=== PATIENT | female | born 1985 | race Caucasian/White ===

== ENCOUNTER 2019-01-01 14:38 | Emergency (ER) | payer SELFPAY ==
--- NOTE | 2019-01-01 15:30 | EDM.PDOC ---
ED HPI GENERAL MEDICAL PROBLEM - General Chief Complaint: General Stated Complaint: RIGHT ABSCESS Time Seen by Provider: 01/01/19 15:30 Source of Information: Reports: Patient History Limitations: Reports: No Limitations - History of Present Illness INITIAL COMMENTS - FREE TEXT/NARRATIVE: History of present illness: []Patient has had months of dental pain but worsened with facial swelling or stenting in the past few days. no drainage from her gums, or fevers. She states she is not . Review of systems: As per history of present illness and below otherwise all systems reviewed and negative. Past medical history: As per history of present illness and as reviewed below otherwise noncontributory. Surgical history: As per history of present illness and as reviewed below otherwise noncontributory. Social history: No reported history of drug or alcohol abuse. Family history: As per history of present illness and as reviewed below otherwise noncontributory. Physical exam: General: Well developed, well nourished in NAD HEENT: Atraumatic, normocephalic, pupils reactive, negative for conjunctival pallor or scleral icterus, mucous membranes moist, throat clear, neck supple, nontender, trachea midline. Her dentition there is no swelling noted of her face Lungs: Clear to auscultation, breath sounds equal bilaterally, chest nontender. Heart: S1S2, regular, negative for clicks, rubs, or JVD. Abdomen: NABS, Soft, nondistended, nontender. Negative for masses or hepatosplenomegaly. Negative for costovertebral tenderness. Pelvis: Stable nontender. Genitourinary: Deferred. Rectal: Deferred. Extremities: Atraumatic, negative for cords or calf pain. Neurovascular unremarkable. Neuro: Awake, alert, oriented. Cranial nerves II through XII unremarkable. Cerebellum unremarkable. Motor and sensory unremarkable throughout. Exam nonfocal. Skin:warm and dry Diagnostics: None Therapeutics: none ED Course: stable Impression: dental abscess Prescriptions: clindamycin Dental balls Plan: Take meds as directed, follow up with your primary care physician, return to ER if symptoms worsen or change. Definitive disposition and diagnosis as appropriate pending reevaluation and review of above. 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 Musculoskeletal History: Reports: None Neurological History: Reports: None Psychiatric History: Reports: None Endocrine/Metabolic History: Reports: None Hematologic History: Reports: None Immunologic History: Reports: None Oncologic (Cancer) History: Reports: None Dermatologic History: Reports: None - Infectious Disease History Infectious Disease History: Reports: None - Past Surgical History Head Surgeries/Procedures: Reports: None GI Surgical History: Reports: Cholecystectomy Social & Family History - Tobacco Use Smoking Status *Q: Current Every Day Smoker Years of Tobacco use: 15 Packs/Tins Daily: 1 - Caffeine Use Caffeine Use: Reports: None - Recreational Drug Use Recreational Drug Use: No ED ROS GENERAL - Review of Systems Review Of Systems: See Below ED EXAM, GENERAL - Physical Exam Exam: See Below Course - Vital Signs Last Recorded V/S: Last Vital Signs Temp 98.7 F 01/01/19 15:10 Pulse 94 01/01/19 15:10 Resp 20 01/01/19 15:10 BP 94/54 L 01/01/19 15:10 Pulse Ox 98 01/01/19 15:10 - Orders/Labs/Meds Meds: Medications Discontinued Medications Generic Name Dose Route Start Last Admin Trade Name Freq PRN Reason Stop Dose Admin Benzocaine 2 each 01/01/19 15:37 Hurricaine One 20% MUCMEM 01/01/19 15:38 ONETIME ONE Lidocaine HCl 15 ml 01/01/19 15:37 Xylocaine 2% Viscous PO 01/01/19 15:38 ONETIME ONE Departure - Departure Time of Disposition: 15:40 Disposition: Home, Self-Care 01 Condition: Good Clinical Impression: Dental abscess - Discharge Information *PRESCRIPTION DRUG MONITORING PROGRAM REVIEWED*: Not Applicable *COPY OF PRESCRIPTION DRUG MONITORING REPORT IN PATIENT DENAE: Not Applicable Prescriptions: Clindamycin HCl 300 mg PO TID #30 capsule Referrals: Bryan Cardenas MD [Primary Care Provider] - Forms: ED Department Discharge Additional Instructions: The following information is given to patients seen in the emergency department who are being discharged to home. This information is to outline your options for follow-up care. We provide all patients seen in our emergency department with a follow-up referral. The need for follow-up, as well as the timing and circumstances, are variable depending upon the specifics of your emergency department visit. If you don't have a primary care physician on staff, we will provide you with a referral. We always advise you to contact your personal physician following an emergency department visit to inform them of the circumstance of the visit and for follow-up with them and/or the need for any referrals to a consulting specialist. The emergency department will also refer you to a specialist when appropriate. This referral assures that you have the opportunity for follow-up care with a specialist. All of these measure are taken in an effort to provide you with optimal care, which includes your follow-up. Under all circumstances we always encourage you to contact your private physician who remains a resource for coordinating your care. When calling for follow-up care, please make the office aware that this follow-up is from your recent emergency room visit. If for any reason you are refused follow-up, please contact the [facility] Emergency Department at and asked to speak to the emergency department charge nurse. Take meds as directed, follow up with your primary care physician, return to ER if symptoms worsen or change. [facility] [address] [place] [id number]
[2019-01-01] MEDS ORDERED: Lidocaine 2% Viscous Solution 15 ML Cup PO ONE (15:37)
[2019-01-01] MEDS ORDERED: Benzocaine 20% Topical Spray UD MUCMEM ONE (15:37)
== END 2019-01-01 16:10 | disposition home or self-care (01) ==
LOC: MW.ED 14:38
DX: K04.7 Periapical abscess without sinus (principal); F17.210 Nicotine dependence, cigarettes, uncomplicated; Z91.030 Bee allergy status
CPT/HCPCS: 99282; A9270

== ENCOUNTER 2019-06-12 15:20 | Emergency (ER) | payer SELFPAY ==
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
--- NOTE | 2019-06-12 15:55 | CR ---
Right foot: 2 views of the right foot were obtained. Frontal view is slightly obliqued which causes overlap of the metatarsal bases and poor evaluation of this area. Within this limitation, no discrete fracture or other abnormality is appreciated. Impression: 1. Somewhat limited study as noted above. 2. Within above noted limitation, no abnormality is otherwise identified. Diagnostic code #2 This report was dictated in Mountain Standard Time
== END 2019-06-12 16:13 ==
LOC: MW.ED 15:20
DX: S99.921A Unspecified injury of right foot, initial encounter (principal); Z91.030 Bee allergy status; Y04.0XXA Assault by unarmed brawl or fight, initial encounter
CPT/HCPCS: 73620-26-RT; 73620-RT; 99283; 99283-25

== ENCOUNTER 2019-12-04 10:20 | Emergency (ER) | payer SELFPAY ==
[2019-12-04] MEDS ORDERED: Lidocaine 2% Viscous Solution 15 ML Cup PO ONE (10:22)
[2019-12-04] MEDS ORDERED: Benzocaine 20% Topical Spray UD MUCMEM ONE (10:22)
--- NOTE | 2019-12-04 10:23 | EDM.PDOC ---
ED HPI GENERAL MEDICAL PROBLEM - General Chief Complaint: ENT Problem Stated Complaint: TOOTH PAIN LT SIDE SWOLLEN Time Seen by Provider: 12/04/19 10:22 Source of Information: Reports: Patient History Limitations: Reports: No Limitations - History of Present Illness INITIAL COMMENTS - FREE TEXT/NARRATIVE: HISTORY AND PHYSICAL: History of present illness: Patient is a 34-year-old female who presents to the emergency room with complaints of left lower dental pain and swelling. She states over the past 2 to 3 days she has had increased pain after "breaking off a piece of my tooth". She states she has multiple "bad teeth" and has been needing to follow-up with a dentist. She was chewing on some gum when a small piece of her tooth had broken off. Attempted to get into a dentist, not able to until next week. Patient denies any fever, chills, headache, change in vision, syncope or near syncope. Denies any chest pain, back pain, shortness of breath or cough. Denies any abdominal pain, nausea, vomiting, diarrhea, constipation or dysuria. Has not noted any blood in urine or stool. Patient has been eating and drinking appropriately. Review of systems: As per history of present illness and below otherwise all systems reviewed and negative. Past medical history: As per history of present illness and as reviewed below otherwise noncontributory. Surgical history: As per history of present illness and as reviewed below otherwise noncontributory. Social history: See social history for further information Family history: As per history of present illness and as reviewed below otherwise noncontributory. Physical exam: General: Well developed and well nourished 34-year-old female. Alert and orientated x 3. Nontoxic in appearance and in no acute distress. Vital signs are stable and have been reviewed by me. Nursing notes were reviewed. HEENT: Atraumatic, normocephalic, pupils equal and reactive bilaterally, negative for conjunctival pallor or scleral icterus, mucous membranes moist, TMs normal bilaterally, throat clear, multiple dental caries, she does have a part of the #19 tooth chipped off without any nerve root exposure. It is red and slightly tender without any fluctuance. Neck supple, nontender, trachea midline. No drooling or trismus noted. No meningeal signs. No hot potato voice noted. Lungs: Clear to auscultation, breath sounds equal bilaterally. Normal work of breathing, no accessory muscles used. Heart: S1S2, regular rate and rhythm without overt murmur Skin: Intact, warm, dry. No lesions or rashes noted. Hematologic: No petechiae or purpra. Mucosa appropriate color and normal nail bed color and refill. Extremities: Atraumatic, moves all extremities per self without difficulty or deficits. Neurovascular unremarkable. Neuro: Awake, alert, oriented. Cranial nerves II through XII unremarkable. Cerebellum unremarkable. Motor and sensory unremarkable throughout. Exam nonfocal. Notes: Explained the importance of following up with a dentist for definitive care. Will place on antibiotic due to possible early abscess. We discussed signs and symptoms that would prompt them to return to the Emergency Department. Medicatio n, follow up and supportive care measures were reviewed and discussed. Voices understanding and is agreeable to plan of care. Denies any further questions or concerns at this time. Diagnostics: None Therapeutics: Dental balls Prescription: Pen-Vee K, diclofenac Impression: Dental caries Plan: 1. Please take the antibiotic as prescribed. 2. Tylenol and/or ibuprofen as needed for pain management. "Tooth Balls" have been given to you; apply along the gumline every 2-3 hours as needed. Do not swallow these; external use only. 3. Follow-up with a dentist for definitive care. Return to the ED as needed and as discussed. Definitive disposition and diagnosis as appropriate pending reevaluation and review of above. 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 Musculoskeletal History: Reports: None Neurological History: Reports: None Psychiatric History: Reports: None Endocrine/Metabolic History: Reports: None Hematologic History: Reports: None Immunologic History: Reports: None Oncologic (Cancer) History: Reports: None Dermatologic History: Reports: None - Infectious Disease History Infectious Disease History: Reports: None - Past Surgical History Head Surgeries/Procedures: Reports: None GI Surgical History: Reports: Cholecystectomy Social & Family History - Family History Family Medical History: Noncontributory - Caffeine Use Caffeine Use: Reports: None ED ROS ENT - Review of Systems Review Of Systems: Comprehensive ROS is negative, except as noted in HPI. ED EXAM, ENT - Physical Exam Exam: See Below (See dictation) Course - Orders/Labs/Meds Meds: Medications Discontinued Medications Generic Name Dose Route Start Last Admin Trade Name Freq PRN Reason Stop Dose Admin Hydrocodone Bitart/Acetaminophen 1 tab 12/04/19 11:04 [place] 325-5 Mg PO 12/04/19 11:05 ONETIME ONE Benzocaine 2 each 12/04/19 10:22 Hurricaine One 20% MUCMEM 12/04/19 10:23 ONETIME ONE Lidocaine HCl 15 ml 12/04/19 10:22 Xylocaine 2% Viscous PO 12/04/19 10:23 ONETIME ONE Departure - Departure Time of Disposition: 11:16 Disposition: Home, Self-Care 01 Clinical Impression: Dental caries - Discharge Information Prescriptions: Penicillin V Potassium 500 mg PO TID 10 Days #30 tablet Diclofenac Sodium [Voltaren] 75 mg PO BIDMEALS PRN #30 tab.cr PRN Reason: Pain Instructions: Preventive Dental Care, Adult Referrals: PCP,None [Primary Care Provider] - Forms: ED Department Discharge Additional Instructions: The following information is given to patients seen in the emergency department who are being discharged to home. This information is to outline your options for follow-up care. We provide all patients seen in our emergency department with a follow-up referral. The need for follow-up, as well as the timing and circumstances, are variable depending upon the specifics of your emergency department visit. If you don't have a primary care physician on staff, we will provide you with a referral. We always advise you to contact your personal physician following an emergency department visit to inform them of the circumstance of the visit and for follow-up with them and/or the need for any referrals to a consulting specialist. The emergency department will also refer you to a specialist when appropriate. This referral assures that you have the opportunity for follow-up care with a specialist. All of these measure are taken in an effort to provide you with optimal care, which includes your follow-up. Under all circumstances we always encourage you to contact your private physician who remains a resource for coordinating your care. When calling for follow-up care, please make the office aware that this follow-up is from your recent emergency room visit. If for any reason you are refused follow-up, please contact the [facility] Emergency Department at and asked to speak to the emergency department charge nurse. [facility] Primary Care [address] [place] [id number] [facility] [address] [place] [phone] Thank you for choosing the [facility] emergency department in [place] for your medical needs today. It was a pleasure caring for you. Today you were seen in the emergency department for dental pain. 1. Please take the antibiotic as prescribed. 2. Tylenol and prescribed Diclofenac as needed for pain management. "Tooth Balls" have been given to you; apply along the gumline every 2-3 hours as needed. Do not swallow these; external use only. 3. Follow-up with a dentist for definitive care. Return to the ED as needed and as discussed.
[2019-12-04] MEDS ORDERED: Acetaminophen/HYDROcodone 325-5 MG Tab PO ONE (11:04)
== END 2019-12-04 11:28 | disposition home or self-care (01) ==
LOC: MW.ED 10:20
DX: K02.9 Dental caries, unspecified (principal); Z91.030 Bee allergy status
CPT/HCPCS: 99282; A9270

== ENCOUNTER 2020-03-13 15:59 | Emergency (ER) | payer SELFPAY ==
[2020-03-13] MEDS ORDERED: Lactated Ringers 1,000 ML IV ONE (16:18)
[2020-03-13] MEDS ORDERED: Sodium Chloride 0.9% 2.5 ML Syringe FLUSH PRN (16:18)
[2020-03-13] MEDS ORDERED: Sodium Chloride 0.9% 10 ML Syringe FLUSH PRN (16:18)
[2020-03-13] MEDS ORDERED: LORazepam 2 MG/ML SDV IVPUSH ONE ×2 (16:19→17:12)
[2020-03-13] MEDS ORDERED: Acetaminophen 500 MG Tab PO ONE (16:46)
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
[2020-03-13 17:08] LABS: BLOOD UREA NITROGEN,BUN 18 mg/dL (7.0-18.0); CHLORIDE,CL 103 mmol/L (98-107); GLUCOSE RANDOM 91 mg/dL (74-106); POTASSIUM,K 3.5 mmol/L (3.5-5.1); SODIUM,NA 138 mmol/L (136-145)
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
[2020-03-13] MEDS ORDERED: Iopamidol 755 MG/ML 500 ML Multipack Bottle IVPUSH STA (18:26)
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
== END 2020-03-13 19:13 ==
LOC: MW.ED 15:59
DX: T71.9XXA Asphyxiation due to unspecified cause, initial encounter (principal); M25.511 Pain in right shoulder; F15.90 Other stimulant use, unspecified, uncomplicated; M54.2 Cervicalgia; F17.210 Nicotine dependence, cigarettes, uncomplicated; Z91.030 Bee allergy status; Y04.0XXA Assault by unarmed brawl or fight, initial encounter
CPT/HCPCS: 36415; 70498; 73030; 80053; 80307; 83605; 84484; 84703; 85025; 93005; 96374; 96376; 99285; A9270; J2060; J7120; Q9967; 93010; 99284

== ENCOUNTER 2020-10-23 03:50 | Emergency (ER) | payer MEDICAID ==
[2020-10-23] MEDS ORDERED: Diphtheria,Pertussis(Acell),Tetanus Vaccine 0.5 ML Syringe IM ONE ×2 (03:59→04:04)
--- NOTE | 2020-10-23 04:19 | EDM.PDOC ---
ED HPI GENERAL MEDICAL PROBLEM - General Chief Complaint: Laceration Stated Complaint: FISH HOOK IN RIGHT HAND RING FINGER Time Seen by Provider: 10/23/20 03:51 Source of Information: Reports: Patient History Limitations: Reports: No Limitations - History of Present Illness INITIAL COMMENTS - FREE TEXT/NARRATIVE: 35-year-old female presents with fishhook embedded in the right ring finger today. She was picking up something off the floor at home and was injured with fishhook. Tetanus status not up-to-date. Pain is localized to her right ring finger, constant, nonradiating exacerbated with range of motion, no alleviating factors. ROS: A 10-point review of systems, other than pertinent positives and negatives as stated per HPI, is otherwise negative Past medical history: No additional pertinent history Past Surgical history: No additional pertinent history Social history: No additional pertinent history Family history: No additional pertinent history PHYSICAL EXAM General: AOx4, GCS = 15, mild distress HEENT: dry mucous membrane Neck: supple, no meningismus, no Kernig or Brudzinski Cardiac: S1S2 RRR Respiratory: CTAB, no crackles or rales, no wheezing Abdomen: Soft, nontender, no rebound or guarding, nondistended, no pulsatile mass. Back: nontender Musculoskeletal: NVI distally, fishhook to right ring finger distal phalanx on the finger pad. No deformity Neuro: No focal deficits, CN 2 - 12 WNL. 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 Musculoskeletal History: Reports: None Neurological History: Reports: None Psychiatric History: Reports: None Endocrine/Metabolic History: Reports: None Hematologic History: Reports: None Immunologic History: Reports: None Oncologic (Cancer) History: Reports: None Dermatologic History: Reports: None - Infectious Disease History Infectious Disease History: Reports: None - Past Surgical History Head Surgeries/Procedures: Reports: None HEENT Surgical History: Reports: None Cardiovascular Surgical History: Reports: None Respiratory Surgical History: Reports: None GI Surgical History: Reports: Cholecystectomy Female Surgical History: Reports: Hysterectomy Endocrine Surgical History: Reports: None Neurological Surgical History: Reports: None Musculoskeletal Surgical History: Reports: None Oncologic Surgical History: Reports: None Dermatological Surgical History: Reports: None Social & Family History - Family History Family Medical History: No Pertinent Family History - Caffeine Use Caffeine Use: Reports: Coffee, Energy Drinks ED ROS GENERAL - Review of Systems Review Of Systems: See Below (see dictation) ED EXAM, SKIN/RASH Exam: See Below (see dictation) ED SKIN PROCEDURES - Foreign Body Removal Indication:: Bear in right ring finger Consent Obtained:: Patient Performing Doctor:: Zeke Sher Anesthesia Type: Other (see below) Anesthesia Other:: digital block with lidocaine 1% Findings:: Bear successfully removed with string being approach. Patient tolerated well. Complications:: No Course - Orders/Labs/Meds Orders: Active Orders 24 hr Category Date Time Status Vaccines to be Administered [RC] PER UNIT ROUTINE Care 10/23/20 04:05 Active Meds: Medications Discontinued Medications Generic Name Dose Route Start Last Admin Trade Name Freq PRN Reason Stop Dose Admin Diphtheria/Tetanus/Acell Pertussis 0.5 ml 10/23/20 03:59 10/23/20 04:04 Diphtheria,Pertussis(Acell),Tetanus Vaccine 0.5 Ml Syringe IM 10/23/20 04:00 Not Given .ONCE ONE Diphtheria/Tetanus/Acell Pertussis 0.5 ml 10/23/20 04:04 10/23/20 04:08 Diphtheria,Pertussis(Acell),Tetanus Vaccine 0.5 Ml Syringe IM 10/23/20 04:05 0.5 ml .ONCE ONE Administration Lidocaine HCl 5 ml 10/23/20 04:07 10/23/20 04:10 Lidocaine 1% 5 Ml Sdv INJECT 10/23/20 04:08 5 ml ONETIME ONE Administration - Re-Assessments/Exams Free Text/Narrative Re-Assessment/Exam: 10/23/20 04:19 Wound was aggressively irrigated with saline after fishhook removal. Tetanus updated in the ED. Departure - Departure Time of Disposition: 04:14 Disposition: Home, Self-Care 01 Condition: Good Clinical Impression: Fish hook injury of finger - Discharge Information *PRESCRIPTION DRUG MONITORING PROGRAM REVIEWED*: Not Applicable *COPY OF PRESCRIPTION DRUG MONITORING REPORT IN PATIENT DENAE: Not Applicable Prescriptions: cephALEXin [Keflex] 500 mg PO Q8H #15 cap Instructions: Puncture Wound, [id number] Referrals: Bryan Cardenas MD [Primary Care Provider] - 3 Days Additional Instructions: The need for follow-up, as well as the timing and circumstances, are variable depending upon the specifics of your emergency department visit. If you don't have a primary care physician on staff, we will provide you with a referral. We always advise you to contact your personal physician following an emergency department visit to inform them of the circumstance of the visit and for follow-up with them and/or the need for any referrals to a consulting specialist. The emergency department will also refer you to a specialist when appropriate. This referral assures that you have the opportunity for follow-up care with a specialist. All of these measure are taken in an effort to provide you with optimal care, which includes your follow-up. Under all circumstances we always encourage you to contact your private physician who remains a resource for coordinating your care. When calling for follow-up care, please make the office aware that this follow-up is from your recent emergency room visit. If for any reason you are refused follow-up, please contact the [facility] Emergency Department at and asked to speak to the emergency department charge nurse. If you do not have a primary care doctor, please follow up with the clinics below within 3-5 days. [facility] [address] [place] [id number] [address] - My Orders Last 24 Hours: My Active Orders 10/23/20 04:05 Vaccines to be Administered [RC] PER UNIT ROUTINE - Assessment/Plan Last 24 Hours: My Active Orders 10/23/20 04:05 Vaccines to be Administered [RC] PER UNIT ROUTINE
== END 2020-10-23 04:20 | disposition home or self-care (01) ==
LOC: MW.ED 03:50
DX: S60.454A Superficial foreign body of right ring finger, initial encounter (principal); Z91.030 Bee allergy status; Z23 Encounter for immunization; W45.8XXA Other foreign body or object entering through skin, initial encounter
CPT/HCPCS: 64450; 90471; 90715; 99283-25

== ENCOUNTER 2021-02-02 06:35 | Emergency (ER) | payer MEDICAID ==
--- NOTE | 2021-02-02 07:00 | EDM.PDOC ---
ED HPI GENERAL MEDICAL PROBLEM - General Chief Complaint: Lower Extremity Injury/Pain Stated Complaint: LEFT KNEE PAIN Time Seen by Provider: 02/02/21 06:53 - History of Present Illness INITIAL COMMENTS - FREE TEXT/NARRATIVE: History of present illness: In the evening last night the patient stepped out of bathtub and immediately felt pain in the distal vastus medialis of her quadriceps patella and medial knee. She is able to bear weight but it is quite painful as is range of motion. There is severe sharp pain right in that area with no radiation and no other symptoms. Patient enjoys good health and was in her usual state of health before that happened. She does not take any medicine. She does however smoke tobacco. Review of systems: As per history of present illness and below otherwise all systems reviewed and negative. Past medical history: As per history of present illness and as reviewed below otherwise noncontributory. Surgical history: As per history of present illness and as reviewed below otherwise noncontributory. Social history: No reported history of drug or alcohol abuse. Family history: As per history of present illness and as reviewed below otherwise noncontributory. Physical exam: Constitutional - well developed, well-nourished and in no acute distress HEENT - normocephalic, no evidence of trauma - external nose and mouth normal - no mass in neck and no JVD - mucosae moist EYES - full EOM, PERRL, no icterus - no evidence of inflammation, injection, or drainage Respiratory - no respiratory distress, equal bilateral expansion Musculoskeletal tender distal most vastus medialis of the quadriceps, upper medial patella, medial knee joint itself. Joint range of motion is essentially normal. Otherwise no gross deformity of long bones or joints - no tenderness, swelling or edema Neurologic - Alert and oriented times four - CN II-XII grossly intact - motor sensory and coordination symmetrically normal Psychiatric - appropriate mood and affect with normal thought content Hematologic - No petechiae or purpura - mucosa appropriate color and sclera not pale - normal nail bed color and refill Integument - no rash or evidence of trauma - normal turgor Diagnostics: [] Therapeutics: [] Impression: [] Plan: [] Definitive disposition and diagnosis as appropriate pending reevaluation and review of above. 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 Musculoskeletal History: Reports: None Neurological History: Reports: None Psychiatric History: Reports: None Endocrine/Metabolic History: Reports: None Hematologic History: Reports: None Immunologic History: Reports: None Oncologic (Cancer) History: Reports: None Dermatologic History: Reports: None - Infectious Disease History Infectious Disease History: Reports: None - Past Surgical History Head Surgeries/Procedures: Reports: None HEENT Surgical History: Reports: None Cardiovascular Surgical History: Reports: None Respiratory Surgical History: Reports: None GI Surgical History: Reports: Cholecystectomy Female Surgical History: Reports: Hysterectomy Endocrine Surgical History: Reports: None Neurological Surgical History: Reports: None Musculoskeletal Surgical History: Reports: None Oncologic Surgical History: Reports: None Dermatological Surgical History: Reports: None Social & Family History - Family History Family Medical History: No Pertinent Family History - Caffeine Use Caffeine Use: Reports: Coffee, Energy Drinks - Recreational Drug Use Recreational Drug Use: No Review of Systems - Review of Systems Review Of Systems: Comprehensive ROS is negative, except as noted in HPI. ED EXAM, GENERAL - Physical Exam Exam: See Below Free Text/Narrative:: My physical exam is in the HPI Course - Vital Signs Last Recorded V/S: Last Vital Signs Temp 36.3 C 02/02/21 06:42 Pulse 83 02/02/21 06:42 Resp 17 02/02/21 06:42 BP 98/59 L 02/02/21 06:42 Pulse Ox 99 02/02/21 06:42 - Orders/Labs/Meds Orders: Active Orders 24 hr Category Date Time Status Knee 3V Lt [CR] Stat Exams 02/02/21 06:58 Ordered DME for Discharge [COMM] Stat Oth 02/02/21 07:18 Ordered - Re-Assessments/Exams Free Text/Narrative Re-Assessment/Exam: 02/02/21 07:20 I read the x-ray myself is normal. AP drawer varus and valgus stress as well as rotation demonstrate stability of the left knee joint with pain especially on varus stress. Patient will be written the DME for a knee immobilizer on the left for sprain of the left knee with a need for 1 week of use. This is further diagnosis is left knee sprain further damage of the ligaments Neurovascular integrity of the distal foot verified after immobilizer placed. 02/02/21 07:23 Departure - Departure Time of Disposition: 07:21 Disposition: Home, Self-Care 01 Condition: Good Clinical Impression: Sprain of unspecified site of left knee, initial encounter - Discharge Information Instructions: Knee Sprain, Adult, [id number] Referrals: Bryan Cardenas MD [Primary Care Provider] - Forms: ED Department Discharge Additional Instructions: Ice to the area, elevation to the area, [id number] acetaminophen, i buprofen, naproxen should be adequate for pain control. You have been given a notes that he can take the rest of the day off. It is okay to go to work with the restriction that you not to take off the immobilizer and band when you are lifting. Therefore he cannot lift heavy objects because he cannot bend or squat to use your back properly. He should be completely better in 2 or 3 days but make an appointment with the orthopedic clinic in case or not and cancel when you find that you have no more pain or instability. [facility] - Orthopedic Clinic [address], [address] [place] [address] The following information is given to patients seen in the emergency department who are being discharged to home. This information is to outline your options for follow-up care. We provide all patients seen in our emergency department with a follow-up referral. The need for follow-up, as well as the timing and circumstances, are variable depending upon the specifics of your emergency department visit. If you don't have a primary care physician on staff, we will provide you with a referral. We always advise you to contact your personal physician following an emergency department visit to inform them of the circumstance of the visit and for follow-up with them and/or the need for any referrals to a consulting specialist. The emergency department will also refer you to a specialist when appropriate. This referral assures that you have the opportunity for follow-up care with a specialist. All of these measure are taken in an effort to provide you with optimal care, which includes your follow-up. Under all circumstances we always encourage you to contact your private physician who remains a resource for coordinating your care. When calling for follow-up care, please make the office aware that this follow-up is from your recent emergency room visit. If for any reason you are refused follow-up, please contact the [facility] Emergency Department at and asked to speak to the emergency department charge nurse. Sepsis Event Note (ED) - Focused Exam Vital Signs: Vital Signs Temp Pulse Resp BP Pulse Ox 02/02/21 06:42 36.3 C 83 17 98/59 L 99 - My Orders Last 24 Hours: My Active Orders 02/02/21 06:58 Knee 3V Lt [CR] Stat 02/02/21 07:18 DME for Discharge [COMM] Stat - Assessment/Plan Last 24 Hours: My Active Orders 02/02/21 06:58 Knee 3V Lt [CR] Stat 02/02/21 07:18 DME for Discharge [COMM] Stat
--- NOTE | 2021-02-02 07:43 | CR ---
INDICATION: Pain COMPARISON: none TECHNIQUE: Three-view left knee FINDINGS: The bones are anatomically aligned. There is no evidence of fracture, erosion or intrinsic bone lesion. The soft tissues appear normal. IMPRESSION: Negative left knee. Dictated by Preet Medley MD @ 02/02/2021 7:40:55 AM (Electronically Signed)
== END 2021-02-02 07:53 | disposition home or self-care (01) ==
LOC: MW.ED 06:35
DX: S83.92XA Sprain of unspecified site of left knee, initial encounter (principal); F17.200 Nicotine dependence, unspecified, uncomplicated; Z91.030 Bee allergy status; X50.1XXA Overexertion from prolonged static or awkward postures, initial encounter
CPT/HCPCS: 73562-26-LT; 73562-LT; 99283-25

== ENCOUNTER 2022-11-09 04:22 | Emergency (ER) | payer MEDICAID ==
[2022-11-09] MEDS ORDERED: Sodium Chloride 0.9% 10 ML Syringe FLUSH PRN (04:28)
[2022-11-09] MEDS ORDERED: Sodium Chloride 0.9% 1,000 ML IV ONE ×2 (04:28→06:07)
[2022-11-09] MEDS ORDERED: Sodium Chloride 0.9% 2.5 ML Syringe FLUSH PRN (04:28)
[2022-11-09] MEDS ORDERED: LORazepam 2 MG/ML SDV IVPUSH ONE (04:29)
[2022-11-09 04:45] LABS: BASOPHILS ABSOLUTE AUTO 0.1 K/uL (0.0-0.1); BASOPHILS PERCENT AUTO 0.8 % (0.0-1.5); EOSINOPHILS ABSOLUTE AUTO 0.1 K/uL (0.0-0.7); EOSINOPHILS PERCENT AUTO 0.8 % (0.0-7.0); HEMATOCRIT 40.3 % (36.0-46.0); HEMOGLOBIN 14.3 g/dL (12.0-16.0); LYMPHOCYTES ABSOLUTE AUTO 1.2 K/uL (0.6-2.4); LYMPHOCYTES PERCENT AUTO 8.9 % (16.0-40.0); MEAN CORPUSCULAR HEMOGLOBIN 31.8 pg (27.0-32.0); MEAN CORPUSCULAR HGB CONC 35.5 g/dL (31.0-37.0); MEAN CORPUSCULAR VOLUME 89.8 fL (80.0-98.0); MONOCYTES ABSOLUTE AUTO 0.6 K/uL (0.0-0.8); MONOCYTES PERCENT AUTO 4.8 % (0.0-15.0); NEUTROPHILS PERCENT AUTO 84.7 % (48.0-80.0); NRBC ABSOLUTE 0 K/uL; PLATELET COUNT,PLT 326 K/uL (150-400); RED BLOOD CELL COUNT 4.49 M/uL (4.30-5.90); WHITE BLOOD CELL COUNT,WBC 12.98 K/uL (4.0-11.0)
[2022-11-09 05:01] LABS: APPEARANCE,URINE CLEAR; GLUCOSE,URINE NEGATIVE (NEGATIVE); KETONES,URINE TRACE mg/dL (NEGATIVE); LEUKOCYTE ESTERASE,URINE NEGATIVE (NEGATIVE); NITRITE,URINE NEGATIVE (NEGATIVE); OCCULT BLOOD,URINE NEGATIVE (NEGATIVE); PROTEIN,URINE 30 mg/dL (NEGATIVE); UROBILINOGEN,URINE 0.2 EU/dL (<2.0)
[2022-11-09 05:03] LABS: BILIRUBIN,URINE SMALL (NEGATIVE); COLOR,URINE AMBER
[2022-11-09 05:07] LABS: A/G RATIO 1.1 (0.9-1.6); ALANINE AMINOTRANSFERASE,ALT 26 IU/L (14-63); ALBUMIN 4.3 g/dL (3.4-5.0); ALKALINE PHOSPHATASE 77 U/L (46-116); ASPARTATE AMNIOTRANSFERASE,AST 48 IU/L (15-37); BILIRUBIN TOTAL 0.9 mg/dL (0.2-1.0); BLOOD UREA NITROGEN,BUN 21 mg/dL (7.0-18.0); CALCIUM 9.5 mg/dL (8.5-10.1); CARBON DIOXIDE,CO2 16.8 mmol/L (21.0-32.0); CHLORIDE,CL 105 mmol/L (98-107); EST CRCL DRUG DOSING (CG) 72.11 mL/min; GLUCOSE RANDOM 100 mg/dL (74-106); POTASSIUM,K 3.7 mmol/L (3.5-5.1); PROTEIN TOTAL,TP 8.3 g/dL (6.4-8.2); SODIUM,NA 141 mmol/L (136-145)
[2022-11-09 05:08] LABS: ESTIMATED GFR 74 mL/min (>60); ETHANOL BLOOD MEDICAL < 3.0 mg/dL
[2022-11-09 05:11] LABS: AMPHETAMINES SCREEN, URINE PRESUMPTIVE POSITIVE (CUTOFF=500); BARBITURATE SCREEN,URINE NEGATIVE (CUTOFF=200); BENZODIAZEPINES SCREEN,URINE NEGATIVE (CUTOFF=150); BUPRENORPHINE SCREEN,URINE NEGATIVE (CUTOFF=10); METHADONE SCREEN, URINE NEGATIVE (CUTOFF=200); METHAMPHETAMINES SCREEN, URINE PRESUMPTIVE POSITIVE (CUTOFF=500); OXYCODONE SCREEN,URINE NEGATIVE (CUT0FF=100); PCP SCREEN,URINE NEGATIVE (CUTOFF=25); PROPOXYPHENE SCREEN,URINE NEGATIVE (CUTOFF=300); THC SCREEN,URINE 20 NG/ML PRESUMPTIVE POSITIVE (CUTOFF=50)
[2022-11-09 05:13] LABS: BACTERIA,URINE FEW (NEGATIVE); EPITHELIAL CELLS,URINE MODERATE (NONE-FEW); FINE GRANULAR CASTS,URINE 0-3 (NEGATIVE); RBC,URINE 0-2 (0-2/HPF)
== END 2022-11-09 08:21 | disposition home or self-care (01) ==
LOC: MW.ED 04:22
DX: F15.10 Other stimulant abuse, uncomplicated (principal); Z91.030 Bee allergy status
CPT/HCPCS: 36415; 80053; 80305; 80307; 81001; 83735; 84703; 85025; 96361; 96374; 99285; J2060; J3490; J7030; 99284

== ENCOUNTER 2024-09-12 20:07 | Emergency (ER) | payer MEDICAID ==
[2024-09-12] MEDS: Amoxicillin/Clavulanate K 875-125 MG Tab PO ONE (21:33)
== END 2024-09-12 21:35 | disposition home or self-care (01) ==
LOC: MW.ED 20:07
DX: J01.90 Acute sinusitis, unspecified (principal); F17.210 Nicotine dependence, cigarettes, uncomplicated; Z91.030 Bee allergy status; Z79.899 Other long term (current) drug therapy; Z90.49 Acquired absence of other specified parts of digestive tract
CPT/HCPCS: 99283; A9270; 99281